=== PATIENT | female | born 1995 | race Caucasian/White ===

== ENCOUNTER → 2016-05-10 | Outpatient (REF) | payer OTHER | LOC: M LABDRWAD 12:24 | PROVIDERS: ATTEND Physician Assistant Medical | DX: E55.9 Vitamin D deficiency, unspecified (principal) ==

== ENCOUNTER → 2017-01-04 | Outpatient (REF) | payer OTHER | LOC: M LABNEURO 13:20 | PROVIDERS: ATTEND Physician Assistant Medical | DX: E55.9 Vitamin D deficiency, unspecified (principal) ==

== ENCOUNTER → 2020-08-21 | Outpatient (CLI) | payer OTHER ==
--- NOTE | 2020-08-21 16:45 | REP ---
INDICATION: CERVICALGIA. COMPARISON: None. TECHNIQUE: Full cervical spine series, 8 views obtained. FINDINGS: There is no acute compression fracture or malalignment. There is no prevertebral soft tissue swelling. Disc spaces are well preserved. There is normal cervical lordosis. There is no subluxation with flexion and extension. There is no radiographic evidence of significant neural foraminal narrowing. IMPRESSION: Negative cervical spine series. <Electronically signed by Bronson Shrestha > 08/21/20 2358
== END ==
LOC: M RAD 15:53
PROVIDERS: ATTEND Nurse Practitioner
DX: M54.2 Cervicalgia (principal)